=== PATIENT | male | born 1985 | race Caucasian/White ===

== ENCOUNTER 2018-07-02 17:23 | Emergency (ER) | payer OTHER ==
[~2018-07-02] VITALS: Ht 190.5 cm; Wt 150.9 kg
[~2018-07-02 17:23] MED LIST: ATARAX,VISTARIL50 MG PO; BENADRYL; CLINDAMYCIN HC300 MG PO; PREDNISONE20 MG PO; VALIUM2 MG PO; ZANTAC150 MG PO; ZOFRAN4 MG PO; ZYRTEC
[2018-07-02 22:10] VITALS: BP 148/92
== END 2018-07-02 22:11 | disposition home or self-care (01) ==
LOC: EME 17:23
DX: G43.909 Migraine, unspecified, not intractable, without status migrainosus (principal); Z88.0 Allergy status to penicillin; Z88.5 Allergy status to narcotic agent
CPT/HCPCS: 99281; 99283; J1200; J1885; J2765; J7030